=== PATIENT | female | born 1970 | race Caucasian/White ===

== ENCOUNTER 2016-08-02 09:45 | Emergency (ER) | payer OTHER ==
[2016-08-02 11:33] VITALS: BP 125/89
[2016-08-02] MEDS ORDERED: NS 0.9% 1000 ML* 2,000 ML IV ONE (11:43)
[2016-08-02] MEDS ORDERED: Ondansetron INJ* 2 MG/ML VIAL IV ONE (11:44)
--- NOTE | 2016-08-02 11:49 | UC ---
Abdominal Pain Female HPI - HPI Summary HPI Summary: vomiting and profuse diarrhea since 6pm last night. 5 episodes vomiting, 30+ of diarrhea. Non-bloody. No fever. No significant abdominal cramping. Not sure where she got this from, she rarely leaves house due to agoraphobia. No unusual foods. No new meds. - History of Current Complaint Chief Complaint: UCGeneralIllness Stated Complaint: STOMACH,DIARRHEA Time Seen by Provider: 08/02/16 11:29 Hx Obtained From: Patient Hx Last Menstrual Period: 07/21/16 Onset/Duration: Gradual Onset Timing: Constant Severity Initially: Mild Severity Currently: Moderate Location: Diffuse - mild discomfort Radiates: No Character: Aching, Cramping Aggravating Factor(s): Food Alleviating Factor(s): Nothing Associated Signs and Symptoms: Positive: Dizzy - this AM, Decreased Appetite, Nausea, Vomiting, Diarrhea. Negative: Fever, Cough, Chest Pain, Back Pain, Constipation, Blood in Stool, Urinary Symptoms, Vaginal Discharge Allergies/Adverse Reactions: Allergies Allergy/AdvReac Type Severity Reaction Status Date / Time adhesives Allergy See Comment Uncoded 08/02/16 11:33 environmental Allergy Eyes Uncoded 08/02/16 11:33 Itchy/Swollen/Red/Watery Home Medications: Home Medications ALPRAZolam TAB* [Xanax TAB*] 0.5 mg PO BID PRN 08/02/16 [History Confirmed 08/02] ARIPiprazole TAB* [Abilify TAB*] 10 mg PO DAILY 08/02/16 [History Confirmed 12/11] Atorvastatin* [Lipitor*] 10 mg PO DAILY 08/02/16 [History Confirmed 08/02/16] DULoxetine DR CAP* [Cymbalta CAP*] 60 mg PO DAILY 08/02/16 [History Confirmed ] Mirtazapine TAB* [Remeron TAB*] 45 mg PO BEDTIME 08/02/16 [History Confirmed 12/11] Prazosin CAP* [Minipress CAP*] 2 mg PO DAILY 08/02/16 [History Confirmed ] clonazePAM TAB(*) [KlonoPIN TAB(*)] 0.5 mg PO BID 08/02/16 [History Confirmed ] PMH/Surg Hx/FS Hx/Imm Hx Endocrine History Of: Reports: Diabetes - Type 2 Denies: Thyroid Disease Cardiovascular History Of: Denies: Cardiac Disorders, Hypertension, Pacemaker/ICD Respiratory History Of: Denies: Asthma - Surgical History Surgical History: Yes Surgery Procedure, Year, and Place: Cholecystectomy, 1991, [facility] - Family History Known Family History: Negative: Respiratory Disease - Social History Occupation: Employed Full-time Lives: With Family Alcohol Use: Rare Substance Use Type: None Smoking Status (MU): Heavy Every Day Tobacco Smoker Type: Cigarettes Amount Used/How Often: 1/2 PPD Length of Time of Smoking/Using Tobacco: 10 Years Have You Smoked in the Last Year: Yes When Did the Patient Quit Smoking/Using Tobacco: 06/30/14 Review of Systems Constitutional: Fatigue Skin: Negative Eyes: Negative ENT: Negative Respiratory: Negative Cardiovascular: Negative Gastrointestinal: Vomiting, Diarrhea Genitourinary: Negative Motor: Negative Neurovascular: Negative Musculoskeletal: Negative Neurological: Negative Psychological: Negative All Other Systems Reviewed And Are Negative: Yes Physical Exam Triage Information Reviewed: Yes Appearance: Well-Appearing, No Pain Distress, Well-Nourished Vital Signs: Initial Vital Signs Temp 98.5 F 08/02/16 11:29 Pulse 115 08/02/16 11:29 Resp 18 08/02/16 11:29 BP 125/89 08/02/16 11:29 Pulse Ox 99 08/02/16 11:29 Vital Signs Reviewed: Yes Eye Exam: Normal ENT: Positive: Pharynx normal, TMs normal Neck exam: Normal Respiratory Exam: Normal Respiratory: Positive: Lungs clear, Normal breath sounds, No respiratory distress, No accessory muscle use Cardiovascular Exam: Normal Abdomen Description: Positive: Soft, Other: - mild diffuse tenderness. Negative : Distended, Guarding Bowel Sounds: Positive: Present Musculoskeletal Exam: Normal Neurological Exam: Normal Psychological Exam: Normal Skin Exam: Normal Re-Evaluation - Re-Evaluation First Eval Change: Improved Comment: feeling better, no vomiting here but did have diarrhea Abd Pain Female Course/Dx - Differential Dx/Diagnosis Provider Diagnoses: gastroenteritis Discharge - Discharge Plan Condition: Stable Disposition: HOME Prescriptions: Diphenoxylat/Atrop 2.5-0.025M* [Lomotil TAB*] 1 tab PO QID PRN #10 tab MDD 4 tab PRN Reason: Diarrhea Ondansetron ODT TAB* [Zofran Odt TAB*] 4 mg PO Q8H PRN #7 tab.odt PRN Reason: Nausea Patient Education Materials: Gastroenteritis (ED) Referrals: Kavita Rodriguez [Primary Care Provider] -
== END 2016-08-02 13:09 | disposition home or self-care (01) ==
LOC: UCCORT 09:45
DX: K52.9 Noninfective gastroenteritis and colitis, unspecified (principal); R42 Dizziness and giddiness; Z90.49 Acquired absence of other specified parts of digestive tract; F17.210 Nicotine dependence, cigarettes, uncomplicated
CPT/HCPCS: 96361; 96374; 99212; G0463; J2405